=== PATIENT | female | born 1970 | race African-American/Black ===

== ENCOUNTER 2017-02-23 23:48 | Emergency (ER) | payer MEDICAID ==
[~2017-02-23] VITALS: Ht 157.5 cm; Wt 61.0 kg
[~2017-02-23 23:48] MED LIST: ALBUTEROL; TYLENOL
[2017-02-24] MEDS ORDERED: KETOROLAC 30MG/ML VIAL IV STA (04:10)
[2017-02-24 06:03] VITALS: BP 135/86
== END 2017-02-24 06:18 | disposition home or self-care (01) ==
LOC: ER 23:48
DX: M25.512 Pain in left shoulder (principal); J45.909 Unspecified asthma, uncomplicated
CPT/HCPCS: 71010; 72040; 73030; 96374; 99284; J1885; Z7610

== ENCOUNTER 2019-06-03 03:18 | Emergency (ER) | payer MEDICAID ==
[~2019-06-03] VITALS: Ht 157.5 cm; Wt 59.0 kg
[2019-06-03] MEDS ORDERED: KETOROLAC 30MG/ML VIAL IM ONE (04:15)
[2019-06-03] MEDS ORDERED: CYCLOBENZAPRINE 10MG TABLET PO ONE (05:30)
[2019-06-03 05:57] VITALS: BP 125/79
== END 2019-06-03 05:58 | disposition home or self-care (01) ==
LOC: ER 03:18
DX: M75.31 Calcific tendinitis of right shoulder (principal); J45.909 Unspecified asthma, uncomplicated; I10 Essential (primary) hypertension; M54.6 Pain in thoracic spine; M25.511 Pain in right shoulder; R42 Dizziness and giddiness
CPT/HCPCS: 73030; 81025; 96372; 99283; J1885

== ENCOUNTER 2020-02-08 19:13 | Emergency (ER) | payer MEDICAID ==
[~2020-02-08] VITALS: Ht 157.5 cm; Wt 61.0 kg
[2020-02-08] MEDS ORDERED: MORPHINE SULFATE 4 MG/ML CPJ (NOT FOR IM USE) IV STA (20:04)
[2020-02-08 21:07] LABS: BASOPHILS % 0.8 % (0.0-2.0); CHLORIDE 105 mEq/L (98-107); EOSINOPHILS % 0.2 % (0.0-5.0); HEMATOCRIT. 37.9 % (36.0-48.0); HEMOGLOBIN. 13.2 g/dL (12.0-16.0); LYMPHOCYTES % 21.9 % (20.0-50.0); MEAN CORPUSCULAR HEMOGLOBIN 30.5 pg (28.0-32.0); MEAN CORPUSCULAR VOLUME 87.2 fL (81.0-99.0); MEAN PLATELET VOLUME 11.9 fl (7.4-10.4); MONOCYTES % 4.5 % (2.0-8.0); NEUTROPHILS % 72.6 % (40.0-76.0); PLATELET 178 x1000/uL (130-400); RED BLOOD CELL COUNT 4.34 mill/uL (4.2-5.4); RED CELL DISTRIBUTION WIDTH 12.9 % (11.6-14.6)
[2020-02-08 21:53] VITALS: BP 174/91
== END 2020-02-08 22:03 | disposition home or self-care (01) ==
LOC: ER 19:13
DX: R07.89 Other chest pain (principal); I10 Essential (primary) hypertension; J45.909 Unspecified asthma, uncomplicated
CPT/HCPCS: 36415; 71045; 80053; 83880; 84484; 85025; 93005; 96374; 99285; J2270

== ENCOUNTER 2020-04-06 00:36 | Emergency (ER) | payer MEDICAID ==
[~2020-04-06] VITALS: Ht 157.5 cm; Wt 61.0 kg
[2020-04-06] MEDS ORDERED: MAGNESIUM/ALUMINUM HYDROXIDE/SIMETHICONE 30ML UDC PO ONE (01:15)
[2020-04-06] MEDS ORDERED: ASPIRIN 81MG TABLET PO ONE (01:15)
[2020-04-06] MEDS ORDERED: VISCOUS LIDOCAINE 2% 15 ML UDC PO ONE (01:15)
[2020-04-06 01:28] LABS: CHLORIDE 105 mEq/L (98-107)
[2020-04-06 01:31] LABS: BASOPHILS % 1.3 % (0.0-2.0); EOSINOPHILS % 4.1 % (0.0-5.0); HEMATOCRIT. 37.2 % (36.0-48.0); HEMOGLOBIN. 12.6 g/dL (12.0-16.0); LYMPHOCYTES % 53.3 % (20.0-50.0); MEAN CORPUSCULAR HEMOGLOBIN 29.7 pg (28.0-32.0); MEAN CORPUSCULAR VOLUME 87.4 fL (81.0-99.0); MONOCYTES % 6.9 % (2.0-8.0); NEUTROPHILS % 34.4 % (40.0-76.0); PLATELET 188 x1000/uL (130-400); RED BLOOD CELL COUNT 4.26 mill/uL (4.2-5.4); RED CELL DISTRIBUTION WIDTH 12.9 % (11.6-14.6)
[2020-04-06] MEDS ORDERED: KETOROLAC 30MG/ML VIAL IV ONE (02:30)
[2020-04-06] MEDS ORDERED: MORPHINE SULFATE 4 MG/ML CPJ (NOT FOR IM USE) IV ONE ×2 (04:30)
[2020-04-06] MEDS ORDERED: DOCUSATE SODIUM 100MG CAPSULE PO PRN (07:15)
[2020-04-06] MEDS ORDERED: NITROGLYCERIN 0.4MG TABLET SL SL PRN (07:15)
[2020-04-06] MEDS ORDERED: KETOROLAC 15MG/ML VIAL IV PRN (07:15)
[2020-04-06] MEDS ORDERED: GUAIFENESIN 200MG/10ML SUGAR FREE UDC PO PRN (07:15)
[2020-04-06] MEDS ORDERED: ZOLPIDEM TARTRATE 5MG TABLET PO PRN (07:15)
[2020-04-06] MEDS ORDERED: LORAZEPAM 0.5MG TABLET PO PRN (07:15)
[2020-04-06] MEDS ORDERED: CLONIDINE 0.1MG TABLET PO PRN (07:15)
[2020-04-06] MEDS ORDERED: ACETAMINOPHEN 325MG TABLET PO PRN ×2 (07:15)
[2020-04-06] MEDS ORDERED: IPRATROPIUM/ALBUTEROL 0.5-3(2.5)MG/3ML NEB NEB PRN (07:15)
[2020-04-06] MEDS ORDERED: MAGNESIUM/ALUMINUM HYDROXIDE/SIMETHICONE 30ML UDC PO PRN (07:15)
[2020-04-06] MEDS ORDERED: ONDANSETRON HCL 4MG/2ML INJ IV PRN (07:15)
[2020-04-06] MEDS ORDERED: FAMOTIDINE 20MG TABLET PO SCH (09:00)
[2020-04-06] MEDS ORDERED: ZINC SULFATE 220 MG ( 50 ) CAPSULE PO SCH (09:00)
[2020-04-06] MEDS ORDERED: METOPROLOL TARTRATE 25MG TABLET PO SCH (09:00)
[2020-04-06] MEDS ORDERED: ENOXAPARIN 40MG/0.4ML SYR SUBCUT SCH (09:00)
[2020-04-06] MEDS ORDERED: ASPIRIN 81MG EC TABLET PO SCH (09:00)
[2020-04-06] MEDS ORDERED: ASCORBIC ACID 500 MG TABLET PO SCH (09:00)
[2020-04-06 09:08] LABS: ETHANOL BLOOD < 10 mg/dL
[2020-04-06 09:11] LABS: HDL CHOLESTEROL 64 mg/dL (40-59); LDL CHOLESTEROL 129 mg/dL (5-100)
[2020-04-06 14:48] LABS: CREATINE KINASE 80 IU/L (26-192); CREATINE KINASE MB FRACTION < 1.0 ng/mL (0.5-3.6)
[2020-04-06 16:34] VITALS: BP 130/70
== END 2020-04-06 16:53 | disposition left against medical advice (07) ==
LOC: ER 00:36 → EDBEDREQ 03:22 → EDBEDREQTM 03:22 → CANBEDREQ 03:28 → EDBEDREQ 05:16 → EDBEDREQTM 05:16 → ER 16:53 → CANBEDREQ 17:42
DX: R07.89 Other chest pain (principal); I16.1 Hypertensive emergency; R74.01 Elevation of levels of liver transaminase levels; N20.0 Calculus of kidney; J45.909 Unspecified asthma, uncomplicated; F12.10 Cannabis abuse, uncomplicated; Z71.51 Drug abuse counseling and surveillance of drug abuser
CPT/HCPCS: 36415; 71045; 76705; 80053; 80061; 80320; 82550; 82553; 83036; 83880; 84484; 85025; 93005; 93970; 96372; 96374; 96375; 99285; J1650; J1885; J2270; Z7610; G0480

== ENCOUNTER 2020-05-04 22:03 | Emergency (ER) | payer MEDICAID ==
[~2020-05-04] VITALS: Ht 157.5 cm; Wt 61.4 kg
[2020-05-04 23:23] LABS: BASOPHILS % 1.4 % (0.0-2.0); EOSINOPHILS % 1.4 % (0.0-5.0); HEMATOCRIT. 37.8 % (36.0-48.0); HEMOGLOBIN. 13.1 g/dL (12.0-16.0); LYMPHOCYTES % 32.6 % (20.0-50.0); MEAN CORPUSCULAR HEMOGLOBIN 29.9 pg (28.0-32.0); MEAN CORPUSCULAR VOLUME 86.2 fL (81.0-99.0); MEAN PLATELET VOLUME 12.1 fl (7.4-10.4); NEUTROPHILS % 57.6 % (40.0-76.0); PLATELET 170 x1000/uL (130-400); RED BLOOD CELL COUNT 4.38 mill/uL (4.2-5.4); RED CELL DISTRIBUTION WIDTH 13.3 % (11.6-14.6)
[2020-05-04 23:27] LABS: CHLORIDE 107 mEq/L (98-107)
[2020-05-05] MEDS ORDERED: SODIUM CHLORIDE 0.9% 1,000 ML IV NR
[2020-05-05 00:42] VITALS: BP 134/82
== END 2020-05-05 00:43 | disposition home or self-care (01) ==
LOC: ER 22:03
DX: R06.00 Dyspnea, unspecified (principal); J45.909 Unspecified asthma, uncomplicated; I10 Essential (primary) hypertension; F12.10 Cannabis abuse, uncomplicated
CPT/HCPCS: 36415; 71045; 80053; 83880; 84484; 85025; 85379; 93005; 96360; 99285

== ENCOUNTER 2020-05-29 15:42 | Emergency (ER) | payer MEDICAID ==
[~2020-05-29] VITALS: Ht 162.6 cm; Wt 69.0 kg
[2020-05-30] MEDS ORDERED: ONDANSETRON 4MG ODT PO STA (00:06)
[2020-05-30] MEDS ORDERED: ACETAMINOPHEN 325MG TABLET PO ONE (00:15)
[2020-05-30] MEDS ORDERED: SODIUM CHLORIDE 0.9% 1,000 ML IV ONE (00:15)
[2020-05-30 01:07] LABS: BASOPHILS % 1.2 % (0.0-2.0); EOSINOPHILS % 0.6 % (0.0-5.0); HEMATOCRIT. 37.8 % (36.0-48.0); HEMOGLOBIN. 13.2 g/dL (12.0-16.0); MEAN CORPUSCULAR VOLUME 85.5 fL (81.0-99.0); MEAN PLATELET VOLUME 11.1 fl (7.4-10.4); NEUTROPHILS % 55.2 % (40.0-76.0); PLATELET 174 x1000/uL (130-400); RED BLOOD CELL COUNT 4.42 mill/uL (4.2-5.4); RED CELL DISTRIBUTION WIDTH 13.1 % (11.6-14.6)
[2020-05-30 01:11] LABS: CHLORIDE 106 mEq/L (98-107)
[2020-05-30 01:17] LABS: HCG SCREEN NEGATIVE
[2020-05-30 02:27] LABS: CLARITY URINE CLOUDY (CLEAR); COLOR URINE YELLOW (YELLOW); KETONES URINE NEGATIVE (NEGATIVE); LEUKOCYTE ESTERASE URINE 3+ (NEGATIVE); NITRITE URINE POSITIVE (NEGATIVE); OCCULT BLOOD URINE 2+ (NEGATIVE); PROTEIN URINE 1+ (NEGATIVE); SPECIFIC GRAVITY URINE 1.023 (1.005-1.030); UROBILINOGEN URINE 0.2 E.U./dL (0.2-1.0)
[2020-05-30 02:34] LABS: PROTHROMBIN TIME 10.9 sec (9.6-11.0)
[2020-05-30 02:40] LABS: *AMPHETAMINES SCREEN URINE NEGATIVE (NEGATIVE); *BARBITURATES SCREEN URINE NEGATIVE (NEGATIVE); *BENZODIAZEPINES SCREEN URINE NEGATIVE (NEGATIVE); *COCAINE SCREEN URINE NEGATIVE (NEGATIVE); METHADONE URINE SCREEN NEGATIVE (NEGATIVE); OPIATES URINE SCREEN NEGATIVE (NEGATIVE)
[2020-05-30 02:41] LABS: CANNABINOID URINE SCREEN NEGATIVE (NEGATIVE); PHENCYCLIDINE URINE SCREEN NEGATIVE (NEGATIVE)
[2020-05-30] MEDS ORDERED: SULFAMETHOXAZOLE/TRIMETHOPRIM 800/160MG TABLET PO ONE (02:45)
[2020-05-30 03:00] VITALS: BP 138/68
== END 2020-05-30 03:14 | disposition home or self-care (01) ==
LOC: ER 15:56
DX: E86.0 Dehydration (principal); R03.0 Elevated blood-pressure reading, without diagnosis of hypertension
CPT/HCPCS: 36415; 80053; 80305; 81003; 81025; 83690; 84484; 84703; 85025; 85610; 87086; 93005; 96360; 99284; J7030; Q0162

== ENCOUNTER 2020-07-07 15:10 | Emergency (ER) | payer MEDICAID ==
[~2020-07-07] VITALS: Ht 165.1 cm; Wt 61.0 kg
[2020-07-07] MEDS ORDERED: ALBUTEROL (0.083%) 2.5MG/3ML NEB HHN STA (15:36)
[2020-07-07] MEDS ORDERED: IPRATROPIUM BROMIDE (0.02%) 0.5MG/2.5ML NEB HHN STA (15:36)
[2020-07-07] MEDS ORDERED: METHYLPREDNISOLONE SOD SUCC 125 MG/2 ML VIAL IV STA (15:36)
[2020-07-07] MEDS ORDERED: P20 MT (16:56)
[2020-07-07 18:15] VITALS: BP 158/77
== END 2020-07-07 18:28 | disposition left against medical advice (07) ==
LOC: ER 15:10
DX: J45.901 Unspecified asthma with (acute) exacerbation (principal); F12.10 Cannabis abuse, uncomplicated; Z98.890 Other specified postprocedural states
CPT/HCPCS: 93005; 94640; 96374; 99283; J2930; Z7610

== ENCOUNTER 2020-10-17 09:31 | Emergency (ER) | payer MEDICAID ==
[~2020-10-17] VITALS: Ht 167.6 cm; Wt 72.6 kg
[~2020-10-17 09:31] MED LIST changes: +P20 MT
[2020-10-17] MEDS ORDERED: PREDNISONE 20MG TABLET PO ONE (11:30)
[2020-10-17] MEDS ORDERED: IPRATROPIUM/ALBUTEROL 0.5-3(2.5)MG/3ML NEB HHN ONE (11:30)
[2020-10-17] MEDS ORDERED: ALBU6.7H9 INH (13:25)
[2020-10-17] MEDS ORDERED: P50 MT (13:25)
[2020-10-17] MEDS ORDERED: FLUT12AE3 INH (13:26)
[2020-10-17 13:44] VITALS: BP 112/70
== END 2020-10-17 13:45 | disposition home or self-care (01) ==
LOC: ER 09:31
DX: J45.902 Unspecified asthma with status asthmaticus (principal); J18.9 Pneumonia, unspecified organism
CPT/HCPCS: 71045; 93005; 94640; 99283; J7512; Z7610

== ENCOUNTER 2020-10-18 05:51 | Emergency (ER) | payer MEDICAID ==
[~2020-10-18] VITALS: Ht 165.1 cm; Wt 70.0 kg
[~2020-10-18 05:51] MED LIST changes: +ALBU6.7H9 INH; +FLUT12AE3 INH; +P50 MT
[2020-10-18] MEDS ORDERED: IPRATROPIUM BROMIDE (0.02%) 0.5MG/2.5ML NEB HHN STA (06:04)
[2020-10-18] MEDS ORDERED: METHYLPREDNISOLONE SOD SUCC 125 MG/2 ML VIAL IV STA (06:04)
[2020-10-18 06:31] LABS: CHLORIDE 106 mEq/L (98-107)
[2020-10-18 06:39] LABS: BASOPHILS % 0.3 % (0.0-2.0); EOSINOPHILS % 0.1 % (0.0-5.0); HEMATOCRIT. 37.8 % (36.0-48.0); HEMOGLOBIN. 12.5 g/dL (12.0-16.0); LYMPHOCYTES % 19.4 % (20.0-50.0); MEAN CORPUSCULAR HEMOGLOBIN 28.8 pg (28.0-32.0); MEAN PLATELET VOLUME 12.2 fl (7.4-10.4); NEUTROPHILS % 72.2 % (40.0-76.0); PLATELET 171 x1000/uL (130-400); RED BLOOD CELL COUNT 4.35 mill/uL (4.2-5.4); RED CELL DISTRIBUTION WIDTH 12.9 % (11.6-14.6)
[2020-10-18 07:01] LABS: BG BASE EXCESS 1.3 mmol/L (-2.0-2.0); BG CARBOXYHEMOGLOBIN 0.4 % (0.5-1.5); BG DEOXYHEMOGLOBIN 6.1 % (0.0-5.0); BG HCO3 ACT 24.4 mmol/L (22.0-26.0); BG METHEMOGLOBIN 0.3 % (0.0-1.5); BG OXYGEN SATURATION 93.9 % (92.0-98.5); BG OXYHEMOGLOBIN 93.2 % (94.0-97.0); BG PH 7.462 (7.350-7.450); BG PO2 66.3 mmHg (75.0-100.0); BG SAMPLE SITE LEFT RADIAL; BG TOTAL HEMOGLOBIN 17.3 g/dL (12.0-18.0); BG VENT MODE NASAL CANNULA
[2020-10-18] MEDS: ALBUTEROL (0.083%) 2.5MG/3ML NEB HHN SCH ×3 (07:50→08:35)
[2020-10-18] MEDS ORDERED: ALBUTEROL (0.083%) 2.5MG/3ML NEB HHN ONE (09:00)
[2020-10-18 10:36] VITALS: BP 135/72
== END 2020-10-18 11:25 | disposition left against medical advice (07) ==
LOC: ER 05:55
DX: J45.901 Unspecified asthma with (acute) exacerbation (principal); I10 Essential (primary) hypertension; Z79.899 Other long term (current) drug therapy
CPT/HCPCS: 36415; 36600; 71045; 80053; 82375; 82805; 83880; 84484; 85025; 93005; 94640; 96374; 99285; J2930; Z7610

== ENCOUNTER 2021-03-10 18:56 | Emergency (ER) | payer MEDICAID, OTHER ==
[~2021-03-10] VITALS: Ht 157.5 cm; Wt 56.3 kg
[2021-03-10 19:02] VITALS: BP 138/74
[2021-03-10] MEDS ORDERED: LORAZEPAM 0.5MG TABLET PO ONE (22:00)
== END 2021-03-11 00:15 | disposition home or self-care (01) ==
LOC: ER 18:56
DX: R42 Dizziness and giddiness (principal); F41.9 Anxiety disorder, unspecified; I10 Essential (primary) hypertension; Z79.899 Other long term (current) drug therapy
CPT/HCPCS: 93005; 99283

== ENCOUNTER 2021-04-03 18:23 | Emergency (ER) | payer OTHER ==
[~2021-04-03] VITALS: Ht 162.6 cm; Wt 59.0 kg
[2021-04-03] MEDS ORDERED: METHYLPREDNISOLONE SOD SUCC 125 MG/2 ML VIAL IV STA (20:35)
[2021-04-03] MEDS ORDERED: IPRATROPIUM BROMIDE (0.02%) 0.5MG/2.5ML NEB HHN STA (20:35)
[2021-04-03] MEDS ORDERED: ALBUTEROL (0.083%) 2.5MG/3ML NEB HHN STA (20:35)
[2021-04-03 20:45] VITALS: BP 155/82
[2021-04-03] MEDS ORDERED: SODIUM CHLORIDE 0.9% 1,000 ML IV ONE (20:45)
== END 2021-04-03 20:46 | disposition left against medical advice (07) ==
LOC: ER 18:23
DX: R06.02 Shortness of breath (principal); R00.2 Palpitations; R06.2 Wheezing; R05.9 Cough, unspecified
CPT/HCPCS: 93005; 99283; J7030

== ENCOUNTER 2021-04-06 11:05 | Emergency (ER) | payer OTHER ==
[~2021-04-06] VITALS: Ht 157.5 cm; Wt 61.0 kg
[2021-04-06] MEDS ORDERED: ALBUTEROL (0.083%) 2.5MG/3ML NEB HHN STA (11:34)
[2021-04-06] MEDS ORDERED: METHYLPREDNISOLONE SOD SUCC 125 MG/2 ML VIAL IV STA (11:34)
[2021-04-06] MEDS ORDERED: IPRATROPIUM BROMIDE (0.02%) 0.5MG/2.5ML NEB HHN STA (11:34)
[2021-04-06] MEDS ORDERED: SODIUM CHLORIDE 0.9% 1,000 ML IV ONE (11:45)
[2021-04-06 12:07] LABS: EOSINOPHILS % 5.4 % (0.0-5.0); HEMOGLOBIN. 14.5 g/dL (12.0-16.0); LYMPHOCYTES % 42.8 % (20.0-50.0); MEAN CORPUSCULAR HEMOGLOBIN 29.7 pg (28.0-32.0); MEAN CORPUSCULAR VOLUME 88.5 fL (81.0-99.0); MEAN PLATELET VOLUME 11.4 fl (7.4-10.4); MONOCYTES % 6.1 % (2.0-8.0); NEUTROPHILS % 44.7 % (40.0-76.0); PLATELET 153 x1000/uL (130-400); RED BLOOD CELL COUNT 4.86 mill/uL (4.2-5.4)
[2021-04-06 12:13] LABS: CHLORIDE 108 mEq/L (98-107)
[2021-04-06] MEDS ORDERED: ALBU6.7H9 INH (13:11)
[2021-04-06] MEDS ORDERED: ALBU05 NEB (13:11)
[2021-04-06] MEDS ORDERED: P50 MT (13:11)
[2021-04-06 13:55] VITALS: BP 113/77
== END 2021-04-06 14:08 | disposition home or self-care (01) ==
LOC: ER 11:25
DX: J45.901 Unspecified asthma with (acute) exacerbation (principal)
CPT/HCPCS: 36415; 71045; 80053; 85025; 93005; 94640; 96374; 99285; J2930; J7030; Z7610

== ENCOUNTER 2021-04-14 00:14 | Emergency (ER) | payer OTHER ==
[~2021-04-14] VITALS: Ht 170.2 cm; Wt 73.0 kg
[~2021-04-14 00:14] MED LIST changes: +ALBU05 NEB
[2021-04-14] MEDS ORDERED: MAGNESIUM 2 G PREMIX 50 ML IV STA (00:49)
[2021-04-14] MEDS ORDERED: IPRATROPIUM BROMIDE (0.02%) 0.5MG/2.5ML NEB HHN STA (00:49)
[2021-04-14] MEDS ORDERED: METHYLPREDNISOLONE SOD SUCC 125 MG/2 ML VIAL IV STA (00:49)
[2021-04-14] MEDS ORDERED: ALBUTEROL (0.083%) 2.5MG/3ML NEB HHN STA (00:49)
[2021-04-14] MEDS ORDERED: PRED10TA23 MT (04:16)
[2021-04-14] MEDS ORDERED: FLUT12AE3 INH (04:16)
[2021-04-14 05:00] VITALS: BP 151/86
== END 2021-04-14 05:42 | disposition home or self-care (01) ==
LOC: ER 00:26
DX: J45.901 Unspecified asthma with (acute) exacerbation (principal)
CPT/HCPCS: 71045; 96365; 96375; 99284; J2930; J3475

== ENCOUNTER 2021-05-18 18:12 | Emergency (ER) | payer OTHER ==
[~2021-05-18] VITALS: Ht 157.5 cm; Wt 67.3 kg
[~2021-05-18 18:12] MED LIST changes: +PRED10TA23 MT
[2021-05-18 20:26] LABS: BASOPHILS % 1.5 % (0.0-2.0); EOSINOPHILS % 1.2 % (0.0-5.0); HEMATOCRIT. 43.4 % (36.0-48.0); HEMOGLOBIN. 14.3 g/dL (12.0-16.0); LYMPHOCYTES % 28.5 % (20.0-50.0); MEAN CORPUSCULAR HEMOGLOBIN 29.5 pg (28.0-32.0); MEAN CORPUSCULAR VOLUME 89.5 fL (81.0-99.0); MEAN PLATELET VOLUME 11.9 fl (7.4-10.4); MONOCYTES % 4.3 % (2.0-8.0); NEUTROPHILS % 64.5 % (40.0-76.0); PLATELET 199 x1000/uL (130-400); RED BLOOD CELL COUNT 4.85 mill/uL (4.2-5.4); RED CELL DISTRIBUTION WIDTH 13.2 % (11.6-14.6)
[2021-05-18 20:33] LABS: CHLORIDE 108 mEq/L (98-107)
[2021-05-18 20:38] LABS: ETHANOL BLOOD < 10 mg/dL; HCG SCREEN NEGATIVE
[2021-05-18] MEDS ORDERED: LABETALOL HCL 20MG/4ML CARPUJECT IV ONE (20:45)
[2021-05-18] MEDS ORDERED: LABETALOL 5MG/ML SYR 20 MG/4 ML SYRINGE IV NR (20:45)
[2021-05-18] MEDS ORDERED: NICARDIPINE 40MG/200ML PREMIX 200 ML IV PRN (20:45)
[2021-05-18] MEDS ORDERED: IOHEXOL-350 100 ML BOTTLE ONE (21:06)
[2021-05-18 22:57] VITALS: BP 160/91
[2021-05-18 23:03] LABS: CLARITY URINE CLEAR (CLEAR); COLOR URINE YELLOW (YELLOW); KETONES URINE NEGATIVE (NEGATIVE); LEUKOCYTE ESTERASE URINE 2+ (NEGATIVE); NITRITE URINE POSITIVE (NEGATIVE); OCCULT BLOOD URINE 1+ (NEGATIVE); PH URINE 6.5 (4.5-8.0); PROTEIN URINE TRACE (NEGATIVE); SPECIFIC GRAVITY URINE 1.053 (1.005-1.030); UROBILINOGEN URINE 0.2 E.U./dL (0.2-1.0)
[2021-05-18 23:29] LABS: *AMPHETAMINES SCREEN URINE NEGATIVE (NEGATIVE); *BARBITURATES SCREEN URINE NEGATIVE (NEGATIVE); METHADONE URINE SCREEN NEGATIVE (NEGATIVE); OPIATES URINE SCREEN NEGATIVE (NEGATIVE)
[2021-05-18 23:30] LABS: *BENZODIAZEPINES SCREEN URINE NEGATIVE (NEGATIVE); *COCAINE SCREEN URINE NEGATIVE (NEGATIVE); PHENCYCLIDINE URINE SCREEN NEGATIVE (NEGATIVE)
[2021-05-19 00:29] LABS: CANNABINOID URINE SCREEN PRESUMTIVE POSITIVE (NEGATIVE)
[2021-05-19 09:46] LABS: UCG SCREEN NEGATIVE
== END 2021-05-18 23:09 | disposition left against medical advice (07) ==
LOC: ER 18:12 → CANBEDREQ 23:15
DX: I16.9 Hypertensive crisis, unspecified (principal); H54.3 Unqualified visual loss, both eyes
CPT/HCPCS: 36415; 70450; 70496; 70498; 71045; 80053; 80305; 80320; 81003; 81025; 82962; 84484; 84703; 85025; 87086; 96365; 96375; 99291; J3490; Q9967; Z7610; G0480

== ENCOUNTER 2021-05-29 05:37 | Emergency (ER) | payer MEDICAID, OTHER ==
[~2021-05-29] VITALS: Ht 157.5 cm; Wt 53.0 kg
[2021-05-29] MEDS ORDERED: IPRATROPIUM BROMIDE (0.02%) 0.5MG/2.5ML NEB HHN STA (05:59)
[2021-05-29] MEDS ORDERED: METHYLPREDNISOLONE SOD SUCC 125 MG/2 ML VIAL IV STA (05:59)
[2021-05-29] MEDS ORDERED: MAGNESIUM 2 G PREMIX 50 ML IV ONE (06:00)
[2021-05-29] MEDS: ALBUTEROL (0.083%) 2.5MG/3ML NEB HHN SCH ×2 (06:22→06:42)
[2021-05-29 06:40] LABS: EOSINOPHILS % 5.8 % (0.0-5.0); MEAN CORPUSCULAR HEMOGLOBIN 30.6 pg (28.0-32.0)
[2021-05-29 06:42] LABS: CHLORIDE 105 mEq/L (98-107)
[2021-05-29 06:45] LABS: BASOPHILS % 1.4 % (0.0-2.0); HEMATOCRIT. 40.7 % (36.0-48.0); HEMOGLOBIN. 14.3 g/dL (12.0-16.0); LYMPHOCYTES % 21.1 % (20.0-50.0); MEAN CORPUSCULAR VOLUME 86.8 fL (81.0-99.0); MEAN PLATELET VOLUME 11.7 fl (7.4-10.4); MONOCYTES % 6.5 % (2.0-8.0); NEUTROPHILS % 65.2 % (40.0-76.0); PLATELET 174 x1000/uL (130-400); RED BLOOD CELL COUNT 4.69 mill/uL (4.2-5.4)
[2021-05-29 08:37] VITALS: BP 131/67
[2021-05-29] MEDS ORDERED: P50 MT (10:09)
[2021-05-29] MEDS ORDERED: ALBU2.5V13 NEB (10:11)
== END 2021-05-29 11:19 | disposition home or self-care (01) ==
LOC: ER 05:37
DX: J45.901 Unspecified asthma with (acute) exacerbation (principal); R09.02 Hypoxemia; Z79.899 Other long term (current) drug therapy
CPT/HCPCS: 36415; 71045; 80053; 83880; 84484; 85025; 93005; 94640; 96365; 96375; 99285; J2930; J3475; Z7610

== ENCOUNTER 2021-06-15 15:46 | Emergency (ER) | payer MEDICAID ==
[~2021-06-15] VITALS: Ht 167.6 cm; Wt 59.0 kg
[~2021-06-15 15:46] MED LIST changes: +ALBU2.5V13 NEB
[2021-06-15 18:03] LABS: BASOPHILS % 0.7 % (0.0-2.0); EOSINOPHILS % 2.4 % (0.0-5.0); HEMATOCRIT. 38.4 % (36.0-48.0); HEMOGLOBIN. 13.6 g/dL (12.0-16.0); LYMPHOCYTES % 33.8 % (20.0-50.0); MEAN CORPUSCULAR HEMOGLOBIN 30.4 pg (28.0-32.0); MONOCYTES % 7.9 % (2.0-8.0); NEUTROPHILS % 55.2 % (40.0-76.0); RED BLOOD CELL COUNT 4.46 mill/uL (4.2-5.4)
[2021-06-15 18:09] LABS: CHLORIDE 107 mEq/L (98-107)
[2021-06-15 19:41] LABS: MEAN PLATELET VOLUME 11.9 fl (7.4-10.4); PLATELET 120 x1000/uL (130-400)
[2021-06-15 22:47] LABS: CLARITY URINE TURBID (CLEAR); COLOR URINE YELLOW (YELLOW); KETONES URINE NEGATIVE (NEGATIVE); LEUKOCYTE ESTERASE URINE 3+ (NEGATIVE); NITRITE URINE NEGATIVE (NEGATIVE); OCCULT BLOOD URINE 2+ (NEGATIVE); PROTEIN URINE 1+ (NEGATIVE); SPECIFIC GRAVITY URINE 1.021 (1.005-1.030)
[2021-06-16] MEDS ORDERED: CEPH500C2 MT (02:51)
[2021-06-16 03:08] VITALS: BP 129/84
== END 2021-06-16 03:15 | disposition home or self-care (01) ==
LOC: ER 15:46
DX: N39.0 Urinary tract infection, site not specified (principal); R00.2 Palpitations; J45.909 Unspecified asthma, uncomplicated; I10 Essential (primary) hypertension; Z79.899 Other long term (current) drug therapy
CPT/HCPCS: 36415; 71045; 80053; 81003; 81025; 84484; 85025; 85379; 99284

== ENCOUNTER 2021-08-05 11:24 | Emergency (ER) | payer MEDICAID, OTHER ==
[~2021-08-05] VITALS: Ht 157.5 cm; Wt 66.1 kg
[~2021-08-05 11:24] MED LIST changes: +CEPH500C2 MT
[2021-08-05 12:17] LABS: BASOPHILS % 0.7 % (0.0-2.0); EOSINOPHILS % 0.1 % (0.0-5.0); HEMATOCRIT. 38.9 % (36.0-48.0); HEMOGLOBIN. 13.7 g/dL (12.0-16.0); LYMPHOCYTES % 19.9 % (20.0-50.0); MEAN CORPUSCULAR HEMOGLOBIN 30.1 pg (28.0-32.0); MEAN CORPUSCULAR VOLUME 85.6 fL (81.0-99.0); MEAN PLATELET VOLUME 12.4 fl (7.4-10.4); MONOCYTES % 10.1 % (2.0-8.0); NEUTROPHILS % 69.2 % (40.0-76.0); PLATELET 166 x1000/uL (130-400); RED BLOOD CELL COUNT 4.55 mill/uL (4.2-5.4); RED CELL DISTRIBUTION WIDTH 13.2 % (11.6-14.6)
[2021-08-05 12:24] LABS: CHLORIDE 101 mEq/L (98-107)
[2021-08-05 12:45] LABS: HCG SCREEN INDETERMINATE
[2021-08-05 13:35] LABS: CLARITY URINE CLOUDY (CLEAR); COLOR URINE YELLOW (YELLOW); KETONES URINE NEGATIVE (NEGATIVE); LEUKOCYTE ESTERASE URINE 3+ (NEGATIVE); NITRITE URINE POSITIVE (NEGATIVE); OCCULT BLOOD URINE 1+ (NEGATIVE); PROTEIN URINE 1+ (NEGATIVE); SPECIFIC GRAVITY URINE 1.022 (1.005-1.030); UROBILINOGEN URINE 0.2 E.U./dL (0.2-1.0)
[2021-08-05] MEDS ORDERED: IOHEXOL-350 100 ML BOTTLE ONE (14:09)
[2021-08-05 14:45] LABS: INR 1.1; PARTIAL THROMBOPLASTIN TIME 27.6 sec (23.4-31.0); PROTHROMBIN TIME 11.4 sec (9.6-11.0)
[2021-08-05] MEDS ORDERED: CEFTRIAXONE 1 G PREMIX 50 ML IV ONE (14:45)
[2021-08-05] MEDS ORDERED: CEPH500C2 MT (14:45)
[2021-08-05] MEDS ORDERED: ASPIRIN 81MG TABLET PO ONE (14:45)
[2021-08-05] MEDS ORDERED: SODIUM CHLORIDE 0.9% 1,000 ML IV ONE (14:45)
[2021-08-05] MEDS ORDERED: ASPI-1497 MT (14:45)
[2021-08-05 16:15] VITALS: BP 150/83
== END 2021-08-05 17:18 | disposition left against medical advice (07) ==
LOC: ER 11:24 → CANBEDREQ 17:18 → ER 17:18
DX: R53.1 Weakness (principal); N39.0 Urinary tract infection, site not specified; J45.909 Unspecified asthma, uncomplicated; I10 Essential (primary) hypertension; Z79.899 Other long term (current) drug therapy
CPT/HCPCS: 36415; 70450; 70496; 70498; 71045; 80053; 81003; 82962; 84484; 84702; 84703; 85025; 87077; 87086; 87186; 96365; 99285; J0696; J7030; Q9967

== ENCOUNTER 2021-09-06 12:26 | Emergency (ER) | payer OTHER ==
[~2021-09-06] VITALS: Ht 167.6 cm; Wt 60.0 kg
[~2021-09-06 12:26] MED LIST changes: +ASPI-1497 MT
[2021-09-06] MEDS ORDERED: ASPIRIN 325MG EC TABLET PO ONE (13:15)
[2021-09-06 13:33] LABS: BASOPHILS % 1.1 % (0.0-2.0); EOSINOPHILS % 0.3 % (0.0-5.0); HEMATOCRIT. 33.9 % (36.0-48.0); LYMPHOCYTES % 27.2 % (20.0-50.0); MEAN CORPUSCULAR HEMOGLOBIN 30.4 pg (28.0-32.0); MEAN CORPUSCULAR VOLUME 85.5 fL (81.0-99.0); MEAN PLATELET VOLUME 11.8 fl (7.4-10.4); MONOCYTES % 4.5 % (2.0-8.0); NEUTROPHILS % 66.9 % (40.0-76.0); PLATELET 143 x1000/uL (130-400); RED BLOOD CELL COUNT 3.97 mill/uL (4.2-5.4); RED CELL DISTRIBUTION WIDTH 13.8 % (11.6-14.6)
[2021-09-06 13:41] LABS: CHLORIDE 104 mEq/L (98-107)
[2021-09-06 13:47] LABS: PROTHROMBIN TIME 10.9 sec (9.6-11.0)
[2021-09-06 13:55] LABS: HCG SCREEN NEGATIVE
[2021-09-06 14:01] LABS: ETHANOL BLOOD < 10 mg/dL
[2021-09-06] MEDS ORDERED: IOHEXOL-300 100 ML BOTTLE ONE (14:41)
[2021-09-06 16:57] VITALS: BP 158/100
[2021-09-06] MEDS ORDERED: HYDRALAZINE 20MG/ML VIAL IV ONE (18:00)
[2021-09-06] MEDS ORDERED: ATORVASTATIN CALCIUM 40MG TABLET PO SCH (21:00)
== END 2021-09-06 18:45 | disposition left against medical advice (07) ==
LOC: ER 12:26 → CANBEDREQ 18:37 → ER 18:45
DX: I63.9 Cerebral infarction, unspecified (principal); G81.94 Hemiplegia, unspecified affecting left nondominant side; I16.0 Hypertensive urgency; R26.2 Difficulty in walking, not elsewhere classified; Z20.822 Contact with and (suspected) exposure to COVID-19
CPT/HCPCS: 36415; 70450; 70496; 70498; 71045; 80053; 80320; 82962; 84484; 84703; 85025; 85610; 87426; 93005; 96374; 99291; J0360; Q9967; G0480

== ENCOUNTER 2022-02-04 10:40 | Emergency (ER) | payer OTHER ==
[~2022-02-04] VITALS: Ht 157.5 cm; Wt 75.0 kg
[2022-02-04 12:40] LABS: HEMATOCRIT. 38.5 % (36.0-48.0); HEMOGLOBIN. 13.8 g/dL (12.0-16.0); LYMPHOCYTES % 22.8 % (20.0-50.0); MEAN CORPUSCULAR HEMOGLOBIN 30.8 pg (28.0-32.0); MEAN CORPUSCULAR VOLUME 86.2 fL (81.0-99.0); MEAN PLATELET VOLUME 11.7 fl (7.4-10.4); MONOCYTES % 8.6 % (2.0-8.0); NEUTROPHILS % 66.6 % (40.0-76.0); PLATELET 179 x1000/uL (130-400); RED BLOOD CELL COUNT 4.46 mill/uL (4.2-5.4); RED CELL DISTRIBUTION WIDTH 13.3 % (11.6-14.6)
[2022-02-04 12:43] LABS: CHLORIDE 102 mEq/L (98-107)
[2022-02-04 13:00] LABS: HCG SCREEN NEGATIVE
[2022-02-04 14:20] VITALS: BP 162/88
== END 2022-02-04 18:00 | disposition left against medical advice (07) ==
LOC: ER 11:52
DX: R42 Dizziness and giddiness (principal); I10 Essential (primary) hypertension; J45.909 Unspecified asthma, uncomplicated; Z53.29 Procedure and treatment not carried out because of patient's decision for other reasons; Z79.899 Other long term (current) drug therapy
CPT/HCPCS: 36415; 71045; 80053; 80320; 84703; 85025; 93005; 99285; G0480

== ENCOUNTER 2022-03-20 12:36 | Emergency (ER) | payer OTHER ==
[~2022-03-20] VITALS: Ht 167.6 cm; Wt 72.0 kg
[~2022-03-20 12:36] MED LIST changes: +ALBU90AE INH
[2022-03-20 12:57] VITALS: BP 192/108
[2022-03-20] MEDS ORDERED: ALBUTEROL (0.083%) 2.5MG/3ML NEB HHN STA (13:07)
[2022-03-20] MEDS ORDERED: PREDNISONE 20MG TABLET PO STA (13:07)
[2022-03-20] MEDS ORDERED: IPRATROPIUM BROMIDE (0.02%) 0.5MG/2.5ML NEB HHN STA (13:07)
[2022-03-20 14:00] LABS: BASOPHILS % 0.6 % (0.0-2.0); EOSINOPHILS % 3.8 % (0.0-5.0); HEMOGLOBIN. 13.1 g/dL (12.0-16.0); MEAN CORPUSCULAR HEMOGLOBIN 29.5 pg (28.0-32.0); MEAN CORPUSCULAR VOLUME 87.4 fL (81.0-99.0); MEAN PLATELET VOLUME 11.4 fl (7.4-10.4); MONOCYTES % 6.7 % (2.0-8.0); NEUTROPHILS % 60.9 % (40.0-76.0); PLATELET 148 x1000/uL (130-400); RED BLOOD CELL COUNT 4.46 mill/uL (4.2-5.4); RED CELL DISTRIBUTION WIDTH 14.7 % (11.6-14.6)
[2022-03-20 14:17] LABS: CHLORIDE 101 mEq/L (98-107)
[2022-03-20] MEDS ORDERED: P50 MT (14:48)
== END 2022-03-20 15:07 | disposition home or self-care (01) ==
LOC: ER 12:36
DX: J45.901 Unspecified asthma with (acute) exacerbation (principal); R06.02 Shortness of breath; Z85.9 Personal history of malignant neoplasm, unspecified
CPT/HCPCS: 36415; 71045; 80053; 83880; 84484; 85025; 85379; 93005; 94640; 99285; J7512; Z7610

== ENCOUNTER 2022-03-22 06:57 | Emergency (ER) | payer OTHER ==
[~2022-03-22] VITALS: Ht 157.5 cm; Wt 61.0 kg
[2022-03-22] MEDS ORDERED: ALBUTEROL (0.083%) 2.5MG/3ML NEB HHN STA (07:21)
[2022-03-22] MEDS ORDERED: PREDNISONE 20MG TABLET PO STA (07:21)
[2022-03-22 07:48] LABS: BASOPHILS % 0.2 % (0.0-2.0); EOSINOPHILS % 0.1 % (0.0-5.0); HEMATOCRIT. 37.7 % (36.0-48.0); HEMOGLOBIN. 12.9 g/dL (12.0-16.0); LYMPHOCYTES % 14.5 % (20.0-50.0); MEAN CORPUSCULAR VOLUME 87.6 fL (81.0-99.0); MEAN PLATELET VOLUME 11.6 fl (7.4-10.4); MONOCYTES % 4.5 % (2.0-8.0); NEUTROPHILS % 80.7 % (40.0-76.0); PLATELET 164 x1000/uL (130-400); RED CELL DISTRIBUTION WIDTH 14.4 % (11.6-14.6)
[2022-03-22 08:00] LABS: CHLORIDE 102 mEq/L (98-107)
[2022-03-22 08:17] LABS: HCG SCREEN INDETERMINATE
[2022-03-22] MEDS ORDERED: P50 MT (10:48)
[2022-03-22] MEDS ORDERED: ALBU6.7H9 INH (10:48)
[2022-03-22 11:00] VITALS: BP 154/84
[2022-03-22] MEDS ORDERED: IOHEXOL-350 100 ML BOTTLE ONE (11:58)
== END 2022-03-22 11:05 | disposition home or self-care (01) ==
LOC: ER 06:57 → CANBEDREQ 03-23 08:56
DX: J45.901 Unspecified asthma with (acute) exacerbation (principal); Z79.899 Other long term (current) drug therapy
CPT/HCPCS: 36415; 71045; 71275; 80053; 83880; 84484; 84702; 84703; 85025; 93005; 94640; 99285; J7512; Q9967; Z7610

== ENCOUNTER 2022-04-14 08:49 | Emergency (ER) | payer OTHER ==
[~2022-04-14] VITALS: Ht 172.7 cm; Wt 68.0 kg
[~2022-04-14 08:49] MED LIST changes: +ALBU6.7H3 INH; -ALBU6.7H9 INH
[2022-04-14 09:40] LABS: BASOPHILS % 0.9 % (0.0-2.0); EOSINOPHILS % 1.1 % (0.0-5.0); HEMATOCRIT. 35.9 % (36.0-48.0); HEMOGLOBIN. 12.3 g/dL (12.0-16.0); LYMPHOCYTES % 20.1 % (20.0-50.0); MEAN CORPUSCULAR HEMOGLOBIN 29.9 pg (28.0-32.0); MEAN CORPUSCULAR VOLUME 87.3 fL (81.0-99.0); MEAN PLATELET VOLUME 12.3 fl (7.4-10.4); MONOCYTES % 7.7 % (2.0-8.0); NEUTROPHILS % 70.2 % (40.0-76.0); PLATELET 165 x1000/uL (130-400); RED BLOOD CELL COUNT 4.11 mill/uL (4.2-5.4); RED CELL DISTRIBUTION WIDTH 13.6 % (11.6-14.6)
[2022-04-14 09:49] LABS: CHLORIDE 109 mEq/L (98-107)
[2022-04-14 09:54] LABS: INR 0.9; PROTHROMBIN TIME 10.2 sec (9.6-11.0)
[2022-04-14 10:46] LABS: CLARITY URINE CLOUDY (CLEAR); COLOR URINE YELLOW (YELLOW); KETONES URINE NEGATIVE (NEGATIVE); LEUKOCYTE ESTERASE URINE 3+ (NEGATIVE); NITRITE URINE NEGATIVE (NEGATIVE); OCCULT BLOOD URINE 2+ (NEGATIVE); PH URINE 7.5 (4.5-8.0); PROTEIN URINE 1+ (NEGATIVE); SPECIFIC GRAVITY URINE 1.013 (1.005-1.030); UROBILINOGEN URINE 0.2 E.U./dL (0.2-1.0)
[2022-04-14 11:00] VITALS: BP 160/79
[2022-04-14] MEDS ORDERED: LEVO750T68 PO (11:47)
[2022-04-14] MEDS ORDERED: OXYC-100 PO (11:47)
== END 2022-04-14 12:35 | disposition home or self-care (01) ==
LOC: ER 08:49
DX: N20.0 Calculus of kidney (principal); N39.0 Urinary tract infection, site not specified; R03.0 Elevated blood-pressure reading, without diagnosis of hypertension; I51.9 Heart disease, unspecified; Z85.118 Personal history of other malignant neoplasm of bronchus and lung
CPT/HCPCS: 36415; 74176; 80053; 81003; 81025; 85025; 99284

== ENCOUNTER 2022-04-16 00:56 | Inpatient (IN) | payer OTHER ==
[~2022-04-16] VITALS: Ht 172.7 cm; Wt 67.6 kg
[~2022-04-16 00:56] MED LIST changes: +LEVO750T68 PO; +OXYC-100 PO
[2022-04-16] MEDS ORDERED: TAMSULOSIN HCL 0.4MG SR CAPSULE PO ONE (03:00)
[2022-04-16] MEDS ORDERED: KETOROLAC 30MG/ML VIAL IV ONE (03:00)
[2022-04-16] MEDS ORDERED: MORPHINE SULFATE 4 MG/ML CPJ (NOT FOR IM USE) IV ONE (03:00)
[2022-04-16] MEDS ORDERED: CEFTRIAXONE 1 G PREMIX 50 ML IV ONE (03:00)
[2022-04-16] MEDS ORDERED: SODIUM CHLORIDE 0.9% 1,000 ML IV ONE (03:00)
[2022-04-16 03:14] LABS: BASOPHILS % 0.6 % (0.0-2.0); EOSINOPHILS % 0.2 % (0.0-5.0); HEMATOCRIT. 34.3 % (36.0-48.0); HEMOGLOBIN. 11.8 g/dL (12.0-16.0); LYMPHOCYTES % 13.6 % (20.0-50.0); MEAN CORPUSCULAR HEMOGLOBIN 29.7 pg (28.0-32.0); MEAN CORPUSCULAR VOLUME 86.4 fL (81.0-99.0); MEAN PLATELET VOLUME 11.2 fl (7.4-10.4); MONOCYTES % 10.3 % (2.0-8.0); NEUTROPHILS % 75.3 % (40.0-76.0); PLATELET 145 x1000/uL (130-400); RED BLOOD CELL COUNT 3.97 mill/uL (4.2-5.4); RED CELL DISTRIBUTION WIDTH 13.6 % (11.6-14.6)
[2022-04-16 03:31] LABS: CHLORIDE 103 mEq/L (98-107)
[2022-04-16] MEDS ORDERED: ACETAMINOPHEN 325MG TABLET PO PRN (09:45)
[2022-04-16] MEDS ORDERED: IPRATROPIUM/ALBUTEROL 0.5-3(2.5)MG/3ML NEB HHN PRN (09:45)
[2022-04-16] MEDS ORDERED: CLONIDINE 0.1MG TABLET PO PRN (09:45)
[2022-04-16] MEDS ORDERED: ONDANSETRON HCL 4MG/2ML INJ IV PRN (09:45)
[2022-04-16] MEDS ORDERED: DIPHENHYDRAMINE 50MG/ML VIAL IV PRN (09:45)
[2022-04-16] MEDS: SODIUM CHLORIDE 0.9% 1,000 ML IV SCH (10:00)
[2022-04-16 11:23] VITALS: BP 103/60
[2022-04-16 12:00] VITALS: BP 107/62
[2022-04-16] MEDS ORDERED: HYDR25TA PO (12:00)
[2022-04-16] MEDS: CEFTRIAXONE 1,000 MG in DEXTROSE 5% WATER 50 ML IV SCH (12:25)
[2022-04-16] MEDS: MORPHINE SULFATE 2 MG/ML CPJ (NOT FOR IM USE) IV PRN ×2 (12:25→18:10)
[2022-04-16 16:00] VITALS: BP 123/67
[2022-04-16 20:00] VITALS: BP 116/54
[2022-04-17] VITALS: BP 127/51
[2022-04-17] MEDS: SODIUM CHLORIDE 0.9% 1,000 ML IV SCH (02:40)
[2022-04-17 04:00] VITALS: BP 138/67
[2022-04-17 08:00] VITALS: BP 143/58
[2022-04-17] MEDS: CEFTRIAXONE 1,000 MG in DEXTROSE 5% WATER 50 ML IV SCH (08:31)
== END 2022-04-17 10:30 | disposition left against medical advice (07) | DRG 463 ==
LOC: ER 00:59 → 6EST 01:00 → EDBEDREQ 05:56 → ENRESERV 07:53
PROVIDERS: ADMIT Internal Medicine; ATTEND Internal Medicine
DX: N13.6 Pyonephrosis (principal); I10 Essential (primary) hypertension; J45.909 Unspecified asthma, uncomplicated; N39.0 Urinary tract infection, site not specified; Z53.29 Procedure and treatment not carried out because of patient's decision for other reasons; Z79.899 Other long term (current) drug therapy
CPT/HCPCS: 36415; 80053; 85025; 93970; 99285; J0696; J1885; J2270; J7030; J7060

== ENCOUNTER 2022-05-17 07:22 | Emergency (ER) | payer MEDICAID, OTHER ==
[~2022-05-17] VITALS: Ht 157.5 cm; Wt 61.0 kg
[~2022-05-17 07:22] MED LIST changes: +HYDR25TA PO
[2022-05-17 12:55] LABS: BASOPHILS % 1.1 % (0.0-2.0); EOSINOPHILS % 4.2 % (0.0-5.0); HEMATOCRIT. 34.9 % (36.0-48.0); HEMOGLOBIN. 11.8 g/dL (12.0-16.0); LYMPHOCYTES % 48.2 % (20.0-50.0); MEAN CORPUSCULAR HEMOGLOBIN 29.5 pg (28.0-32.0); MEAN CORPUSCULAR VOLUME 87.5 fL (81.0-99.0); MEAN PLATELET VOLUME 10.8 fl (7.4-10.4); MONOCYTES % 6.9 % (2.0-8.0); NEUTROPHILS % 39.6 % (40.0-76.0); PLATELET 147 x1000/uL (130-400); RED BLOOD CELL COUNT 3.99 mill/uL (4.2-5.4); RED CELL DISTRIBUTION WIDTH 13.9 % (11.6-14.6)
[2022-05-17 12:58] LABS: CHLORIDE 106 mEq/L (98-107)
[2022-05-17 13:09] LABS: B-HCG QUANTITATIVE 5 mIU/mL (<3)
[2022-05-17 16:26] VITALS: BP 155/61
== END 2022-05-17 16:51 | disposition home or self-care (01) ==
LOC: ER 07:22
DX: R07.89 Other chest pain (principal); I10 Essential (primary) hypertension; J45.909 Unspecified asthma, uncomplicated; Z79.899 Other long term (current) drug therapy; Z98.890 Other specified postprocedural states; Z85.118 Personal history of other malignant neoplasm of bronchus and lung
CPT/HCPCS: 36415; 71045; 80053; 83880; 84484; 84702; 85025; 85379; 93005; 99291

== ENCOUNTER 2022-07-25 11:22 | Inpatient (IN) | payer MEDICAID, OTHER ==
[~2022-07-25] VITALS: Ht 157.5 cm; Wt 61.2 kg
[2022-07-25] MEDS ORDERED: ONDANSETRON HCL 4MG/2ML INJ IV ONE (11:45)
[2022-07-25] MEDS ORDERED: SODIUM CHLORIDE 0.9% 1,000 ML IV ONE (11:45)
[2022-07-25] MEDS ORDERED: MORPHINE SULFATE 4 MG/ML CPJ (NOT FOR IM USE) IV ONE ×2 (11:45→15:15)
[2022-07-25 12:01] LABS: BASOPHILS % 1.5 % (0.0-2.0); EOSINOPHILS % 0.4 % (0.0-5.0); LYMPHOCYTES % 32.7 % (20.0-50.0); MEAN CORPUSCULAR HEMOGLOBIN 29.8 pg (28.0-32.0); MEAN CORPUSCULAR VOLUME 86.8 fL (81.0-99.0); NEUTROPHILS % 57.4 % (40.0-76.0); PLATELET 170 x1000/uL (130-400); RED BLOOD CELL COUNT 4.38 mill/uL (4.2-5.4); RED CELL DISTRIBUTION WIDTH 12.8 % (11.6-14.6)
[2022-07-25 12:10] LABS: CHLORIDE 105 mEq/L (98-107)
[2022-07-25 12:32] LABS: HCG SCREEN INDETERMINATE
[2022-07-25 15:57] LABS: CLARITY URINE CLEAR (CLEAR); COLOR URINE YELLOW (YELLOW); KETONES URINE NEGATIVE (NEGATIVE); LEUKOCYTE ESTERASE URINE 3+ (NEGATIVE); NITRITE URINE POSITIVE (NEGATIVE); OCCULT BLOOD URINE TRACE (NEGATIVE); PROTEIN URINE TRACE (NEGATIVE); UROBILINOGEN URINE 0.2 E.U./dL (0.2-1.0)
[2022-07-25] MEDS ORDERED: CEFTRIAXONE 1 G PREMIX 50 ML IV ONE (17:30)
[2022-07-25] MEDS ORDERED: AMLODIPINE 2.5MG TABLET PO ONE (22:30)
[2022-07-26] MEDS ORDERED: CLONIDINE 0.1MG TABLET PO PRN (00:45)
[2022-07-26] MEDS ORDERED: CEFTRIAXONE 1 G PREMIX 50 ML IV SCH (08:00)
[2022-07-26] MEDS ORDERED: KETOROLAC 30MG/ML VIAL IV PRN (08:00)
[2022-07-26] MEDS ORDERED: ACETAMINOPHEN 325MG TABLET PO PRN (08:00)
[2022-07-26] MEDS ORDERED: ONDANSETRON HCL 4MG/2ML INJ IV PRN (08:00)
[2022-07-26] MEDS: AMLODIPINE 10MG TABLET PO SCH (09:00)
[2022-07-26] MEDS ORDERED: NALOXONE HCL 0.4MG/ML VIAL IV PRN (12:45)
[2022-07-26] MEDS: HYDROCODONE/ACETAMINOPHEN 5/325MG TABLET PO PRN (13:16)
[2022-07-26 14:36] VITALS: BP 102/62
[2022-07-26] MEDS ORDERED: LEVO-65 MT (15:14)
[2022-07-26 16:00] VITALS: BP 119/59
[2022-07-26] MEDS ORDERED: CEFTRIAXONE 1,000 MG in DEXTROSE 5% WATER 50 ML IV SCH (18:00)
[2022-07-26 20:00] VITALS: BP 120/61
[2022-07-27] VITALS: BP 125/64
[2022-07-27] MEDS: HYDROCODONE/ACETAMINOPHEN 5/325MG TABLET PO PRN ×2 (00:06→09:10)
[2022-07-27 04:00] VITALS: BP 106/45
[2022-07-27 08:00] VITALS: BP 132/78
[2022-07-27] MEDS: AMLODIPINE 10MG TABLET PO SCH (08:38)
[2022-07-27 09:10] VITALS: BP 135/64
== END 2022-07-27 13:12 | disposition home or self-care (01) | DRG 199 ==
LOC: ER 11:22 → 8WST 22:20 → EDBEDREQ 23:02 → EDBEDREQTM 23:02 → CANRESERV 23:39 → ENRESERV 23:39
PROVIDERS: ADMIT Internal Medicine; ATTEND Internal Medicine
DX: I16.0 Hypertensive urgency (principal); J45.909 Unspecified asthma, uncomplicated; I10 Essential (primary) hypertension; N39.0 Urinary tract infection, site not specified; N20.0 Calculus of kidney; Z20.822 Contact with and (suspected) exposure to COVID-19
CPT/HCPCS: 36415; 71045; 74176; 76830; 76856; 80053; 81003; 83880; 84484; 84702; 84703; 85025; 87186; 87426; 93976; 99285; C9803; J0696; J2270; J2405; J7030; J7060

== ENCOUNTER 2022-10-20 17:20 | Emergency (ER) | payer MEDICAID, OTHER ==
[~2022-10-20] VITALS: Ht 167.6 cm; Wt 59.0 kg
[~2022-10-20 17:20] MED LIST changes: -ALBU05 NEB; -ALBU2.5V13 NEB; -ALBU90AE INH; -ALBUTEROL; -CEPH500C2 MT; +LEVO-65 MT; -LEVO750T68 PO; -P20 MT; -P50 MT; -PRED10TA23 MT
[2022-10-20] MEDS ORDERED: KETOROLAC 30MG/ML VIAL IV STA (18:37)
[2022-10-20] MEDS ORDERED: ONDANSETRON HCL 4MG/2ML INJ IV STA (18:37)
[2022-10-20] MEDS ORDERED: SODIUM CHLORIDE 0.9% 1000ML BAG (SEPSIS BOLUS) IV ONE (18:45)
[2022-10-20 19:47] LABS: BASOPHILS % 0.2 % (0.0-2.0); HEMATOCRIT. 34.9 % (36.0-48.0); HEMOGLOBIN. 11.9 g/dL (12.0-16.0); LYMPHOCYTES % 9.3 % (20.0-50.0); MEAN CORPUSCULAR HEMOGLOBIN 29.6 pg (28.0-32.0); MEAN CORPUSCULAR VOLUME 86.5 fL (81.0-99.0); MEAN PLATELET VOLUME 11.6 fl (7.4-10.4); MONOCYTES % 6.7 % (2.0-8.0); NEUTROPHILS % 83.8 % (40.0-76.0); PLATELET 145 x1000/uL (130-400); RED BLOOD CELL COUNT 4.03 mill/uL (4.2-5.4); RED CELL DISTRIBUTION WIDTH 12.4 % (11.6-14.6)
[2022-10-20 19:51] LABS: CHLORIDE 104 mEq/L (98-107)
[2022-10-20 19:52] LABS: INR 1.1; PROTHROMBIN TIME 11.3 sec (9.6-11.0)
[2022-10-20 22:25] LABS: CLARITY URINE CLOUDY (CLEAR); COLOR URINE YELLOW (YELLOW); KETONES URINE NEGATIVE (NEGATIVE); LEUKOCYTE ESTERASE URINE 3+ (NEGATIVE); NITRITE URINE NEGATIVE (NEGATIVE); OCCULT BLOOD URINE 1+ (NEGATIVE); PH URINE 6.5 (4.5-8.0); PROTEIN URINE 1+ (NEGATIVE); SPECIFIC GRAVITY URINE 1.015 (1.005-1.030)
[2022-10-20] MEDS ORDERED: CEFTRIAXONE 1GM PREMIX 50 ML IV NR (23:45)
[2022-10-20] MEDS ORDERED: KETOROLAC 15MG/ML VIAL IV ONE (23:45)
[2022-10-21] MEDS ORDERED: ONDANSETRON HCL 4MG/2ML INJ IV NR (00:15)
[2022-10-21] MEDS ORDERED: KETOROLAC 15MG/ML VIAL IV NR (00:15)
[2022-10-21] MEDS ORDERED: TAMSULOSIN HCL 0.4MG SR CAPSULE PO SCH (00:15)
[2022-10-21] MEDS ORDERED: MORPHINE SULFATE 4 MG/ML CPJ (NOT FOR IM USE) IV ONE (00:30)
[2022-10-21 02:00] VITALS: BP 122/62
[2022-10-21] MEDS ORDERED: CEPH500C2 MT (02:41)
[2022-10-21] MEDS ORDERED: TAMS-11 MT (02:41)
== END 2022-10-21 05:29 | disposition left against medical advice (07) ==
LOC: ER 17:20
DX: N12 Tubulo-interstitial nephritis, not specified as acute or chronic (principal); J45.909 Unspecified asthma, uncomplicated; I10 Essential (primary) hypertension; Z85.9 Personal history of malignant neoplasm, unspecified; Z20.822 Contact with and (suspected) exposure to COVID-19
CPT/HCPCS: 36415; 71045; 74176; 76705; 80053; 81003; 83605; 84145; 85025; 85610; 87040; 87077; 87086; 87186; 87426; 87804; 96361; 96365; 96375; 96376; 99285; C9803; J0696; J1885; J2270; J2405; J7030; Z7610

== ENCOUNTER 2022-11-13 12:03 | Emergency (ER) | payer OTHER ==
[~2022-11-13] VITALS: Ht 177.8 cm; Wt 68.0 kg
[~2022-11-13 12:03] MED LIST changes: +CEPH500C2 MT; +TAMS-11 MT
[2022-11-13] MEDS ORDERED: ONDANSETRON HCL 4MG/2ML INJ IV STA (12:08)
[2022-11-13] MEDS ORDERED: SODIUM CHLORIDE 0.9% 1,000 ML IV ONE (12:15)
[2022-11-13 12:54] LABS: BASOPHILS % 0.5 % (0.0-2.0); EOSINOPHILS % 0.1 % (0.0-5.0); HEMATOCRIT. 30.5 % (36.0-48.0); HEMOGLOBIN. 10.4 g/dL (12.0-16.0); LYMPHOCYTES % 9.7 % (20.0-50.0); MEAN CORPUSCULAR HEMOGLOBIN 29.3 pg (28.0-32.0); MEAN CORPUSCULAR VOLUME 85.8 fL (81.0-99.0); MEAN PLATELET VOLUME 11.2 fl (7.4-10.4); NEUTROPHILS % 82.7 % (40.0-76.0); PLATELET 183 x1000/uL (130-400); RED BLOOD CELL COUNT 3.56 mill/uL (4.2-5.4); RED CELL DISTRIBUTION WIDTH 12.5 % (11.6-14.6)
[2022-11-13 13:00] LABS: CHLORIDE 107 mEq/L (98-107)
[2022-11-13] MEDS ORDERED: HYDROCODONE/ACETAMINOPHEN 5/325MG TABLET PO ONE (15:15)
[2022-11-13 15:57] LABS: CLARITY URINE CLOUDY (CLEAR); COLOR URINE YELLOW (YELLOW); KETONES URINE NEGATIVE (NEGATIVE); LEUKOCYTE ESTERASE URINE 2+ (NEGATIVE); NITRITE URINE NEGATIVE (NEGATIVE); OCCULT BLOOD URINE TRACE (NEGATIVE); PROTEIN URINE 1+ (NEGATIVE); SPECIFIC GRAVITY URINE 1.009 (1.005-1.030); UROBILINOGEN URINE 0.2 E.U./dL (0.2-1.0)
[2022-11-13] MEDS ORDERED: CEPH500C2 MT (16:05)
[2022-11-13] MEDS ORDERED: ONDA4TAB50 MT (16:05)
[2022-11-13] MEDS ORDERED: CEFTRIAXONE 1GM PREMIX 50 ML IV ONE (16:15)
[2022-11-13] MEDS ORDERED: ONDANSETRON HCL 4MG/2ML INJ IV ONE (16:15)
[2022-11-13] MEDS ORDERED: KETOROLAC 30MG/ML VIAL IV ONE (16:15)
[2022-11-13 17:11] VITALS: BP 162/80
== END 2022-11-13 17:20 | disposition home or self-care (01) ==
LOC: ER 12:03
DX: R06.02 Shortness of breath (principal); R42 Dizziness and giddiness; J45.909 Unspecified asthma, uncomplicated; Z85.9 Personal history of malignant neoplasm, unspecified; I10 Essential (primary) hypertension; Z79.899 Other long term (current) drug therapy; Z20.822 Contact with and (suspected) exposure to COVID-19
CPT/HCPCS: 36415; 70450; 71045; 80053; 81003; 83880; 84484; 85025; 87086; 87426; 93005; 96361; 96365; 96375; 96376; 99285; C9803; J0696; J1885; J2405; J7030; Z7610

== ENCOUNTER 2023-04-17 18:55 | Emergency (ER) | payer OTHER ==
[~2023-04-17] VITALS: Ht 172.7 cm; Wt 87.0 kg
[~2023-04-17 18:55] MED LIST changes: +ONDA4TAB50 MT
[2023-04-17] MEDS ORDERED: PREDNISONE 20MG TABLET PO STA (20:39)
[2023-04-17] MEDS ORDERED: ALBUTEROL (0.083%) 2.5MG/3ML NEB HHN STA (20:39)
[2023-04-17] MEDS ORDERED: IPRATROPIUM BROMIDE (0.02%) 0.5MG/2.5ML NEB HHN STA (20:39)
[2023-04-17 21:08] VITALS: PULSE 108; RESP 20; O2SAT 96
[2023-04-17] MEDS ORDERED: P20 PO (23:09)
[2023-04-17] MEDS ORDERED: ALBU6.7H15 INH (23:09)
[2023-04-17 23:19] VITALS: BP 154/88; PULSE 100; RESP 20; TEMP 99.1
== END 2023-04-17 23:22 | disposition home or self-care (01) ==
LOC: ER 18:55
DX: J45.901 Unspecified asthma with (acute) exacerbation (principal); I10 Essential (primary) hypertension; F19.90 Other psychoactive substance use, unspecified, uncomplicated; Z85.9 Personal history of malignant neoplasm, unspecified
CPT/HCPCS: 71045; 94640; 99283; J7512; Z7610 ×3

== ENCOUNTER 2023-04-23 03:29 | Emergency (ER) | payer OTHER ==
[~2023-04-23] VITALS: Ht 162.6 cm; Wt 61.0 kg
[~2023-04-23 03:29] MED LIST changes: +ALBU6.7H15 INH; +P20 PO
[2023-04-23 03:33] VITALS: O2SAT 100
[2023-04-23 04:08] LABS: BASOPHILS % 0.9 % (0.0-2.0); EOSINOPHILS % 2.7 % (0.0-5.0); HEMATOCRIT. 37.3 % (36.0-48.0); HEMOGLOBIN. 12.4 g/dL (12.0-16.0); LYMPHOCYTES % 37.7 % (20.0-50.0); MEAN CORPUSCULAR HEMOGLOBIN 28.1 pg (28.0-32.0); MEAN CORPUSCULAR HGB CONC 33.2 g/dL (31.0-37.0); MEAN CORPUSCULAR VOLUME 84.5 fL (81.0-99.0); MEAN PLATELET VOLUME 11.4 fl (7.4-10.4); MONOCYTES % 7.8 % (2.0-8.0); NEUTROPHILS % 50.9 % (40.0-76.0); PLATELET 180 x1000/uL (130-400); RED BLOOD CELL COUNT 4.41 mill/uL (4.2-5.4); RED CELL DISTRIBUTION WIDTH 13.7 % (11.6-14.6); WHITE BLOOD COUNT 12.6 x1000/uL (4.5-11.0)
[2023-04-23 04:12] LABS: CHLORIDE 107 mEq/L (98-107); INDEX HEMOLYSI 4 (1-3); INDEX ICTERIC 1 (1-4); INDEX LIPEMIC 1 (1-3); POTASSIUM 3.3 mEq/L (3.5-5.1); SODIUM 140 mEq/L (136-145)
[2023-04-23 04:14] LABS: HCG SCREEN NEGATIVE
[2023-04-23 04:18] LABS: ALANINE AMINOTRANSFERASE 54 IU/L (13-61); ALBUMIN 3.6 g/dL (3.4-5.0); ASPARTATE AMINOTRANSFERASE 36 IU/L (15-37); BILIRUBIN TOTAL 0.3 mg/dL (0.1-1.0); CALCIUM 9.3 mg/dL (8.5-10.1); CARBON DIOXIDE 24 mEq/L (21-32); GLUCOSE 90 mg/dL (70-105); PROTEIN TOTAL 8.3 g/dL (6.0-8.3); UREA NITROGEN BLOOD 17 mg/dL (7-21)
[2023-04-23] MEDS ORDERED: IPRATROPIUM BROMIDE (0.02%) 0.5MG/2.5ML NEB HHN NR (04:45)
[2023-04-23] MEDS ORDERED: ALBU6.7H15 INH (06:08)
[2023-04-23] MEDS ORDERED: DEXT30SU17 MT (10:31)
[2023-04-23] MEDS ORDERED: TOPUD MT (10:31)
[2023-04-23] MEDS ORDERED: P20 PO (10:31)
[2023-04-23] MEDS ORDERED: AZIT250T12 MT (10:31)
[2023-04-23 10:43] VITALS: BP 159/90; PULSE 85; RESP 16; TEMP 98.3
== END 2023-04-23 10:48 | disposition home or self-care (01) ==
LOC: ER 03:31
DX: B34.9 Viral infection, unspecified (principal); J40 Bronchitis, not specified as acute or chronic; I10 Essential (primary) hypertension; Z85.9 Personal history of malignant neoplasm, unspecified; Z20.822 Contact with and (suspected) exposure to COVID-19
CPT/HCPCS: 99285; 71045; 87426; 80053; 84703; 85025; 85379; 36415; 93005; C9803